=== PATIENT | female | born 1945 | race Caucasian/White ===

== ENCOUNTER 2017-08-09 17:13 | Emergency (ER) | payer MEDICARE, MEDICAID ==
[2017-08-09] MEDS ORDERED: GI Cocktail Oral Solution 30 ML PO ONE (17:25)
[2017-08-09] MEDS ORDERED: Nitroglycerin 0.4 MG Tab.SL SL ONE (17:25)
[2017-08-09] MEDS ORDERED: Aspirin 81 MG Tab.EC PO ONE (17:27)
--- NOTE | 2017-08-09 17:41 | EDM.PDOC ---
ED HPI GENERAL MEDICAL PROBLEM - General Chief Complaint: Chest Pain Stated Complaint: middle chest pain Time Seen by Provider: 08/09/17 17:24 Source of Information: Reports: Patient History Limitations: Reports: No Limitations - History of Present Illness INITIAL COMMENTS - FREE TEXT/NARRATIVE: Patient presents with chest pain that she has been having for the last 5-6 days. She describes it as a short stabbing pain that feels like someone is poking her in the middle of her chest. It lasts a few seconds, then is gone. She denies chest pressure, no SOB, no sweating, nausea, vomiting. Having regular bowel and urinary habits with no blood seen in either. No pain or pressure down her arms or back. No pain to her abdomen. She denies recent travel, or contact with someone with illness or recent travel. Family history includes a sister who from CVA in her 60's, brother who had heart valve surgery in his 50's, mother had a stroke in her 60's, as well as a pacemaker insertion. Father in his 40's from suicide. Personal medical history includes COPD, HTN. She denies asthma, diabetes, cancer, states cholesterol is normal, no thyroid issues. Surgical history includes gallbladder and appendix removal as well as a total hysterectomy. She denies alcohol use, smokes 1 PPD for the last years, former smoker of marijuana. Onset Date: 08/03/17 Duration: Intermittent Location: Reports: Chest Quality: Reports: Sharp, Throbbing Severity: Mild Improves with: Reports: None Worsens with: Reports: None Associated Symptoms: Reports: No Other Symptoms - Related Data Allergies Allergy/AdvReac Type Severity Reaction Status Date / Time acetaminophen [From Tylenol] Allergy Vomiting Verified 08/09/17 17:51 codeine Allergy Hives Verified 08/09/17 17:51 feathers Allergy Itching Verified 08/09/17 17:51 hydrocodone Allergy Cannot Verified 08/09/17 17:51 Remember Sulfa (Sulfonamide Allergy Hives Verified 08/09/17 17:51 Antibiotics) bee stings Allergy Cannot Uncoded 09/29/16 23:26 Remember IVP dye Allergy Cannot Uncoded 09/29/16 23:26 Remember Home Meds: Home Meds Albuterol Sulfate [Albuterol Sulfate HFA] 2 inh Q6H PRN 08/12/15 [History] Aspirin 81 mg PO DAILY 08/12/15 [History] FLUoxetine [PROzac] 20 mg PO DAILY 08/12/15 [History] Gluc HCl/Csa/Omkar Hy/Hyalur Ac [Glucosamine Chondroitin] 1 tab DAILY 08/12/15 [ History] Oxybutynin [Oxybutynin ER] 10 mg PO DAILY 08/12/15 [History] Triamterene/Hydrochlorothiazid [Triamterene-HCTZ 37.5-25 MG] 1 tab ASDIRECTED PRN 08/12/15 [History] oxyCODONE HCl [Oxycodone HCl] 30 mg PO TID 08/12/15 [History] Fluocinonide [Lidex 0.05% Crm] 15 gm .XX BID 08/09/17 [History] busPIRone [Buspar] 15 mg PO BID 08/09/17 [History] Past Medical History Cardiovascular History: Reports: Hypertension Musculoskeletal History: Reports: Arthritis, Back Pain, Chronic Other Musculoskeletal History: degenerative disc disease. dysfunctional pelvis - Past Surgical History Other Musculoskeletal Surgeries/Procedures:: bunionectomy Social & Family History - Tobacco Use Smoking Status *Q: Current Every Day Smoker Years of Tobacco use: 50 Packs/Tins Daily: 1 - Recreational Drug Use Recreational Drug Use: No ED ROS GENERAL - Review of Systems Review Of Systems: See Below Constitutional: Reports: No Symptoms HEENT: Reports: No Symptoms Respiratory: Reports: No Symptoms Cardiovascular: Reports: Chest Pain Endocrine: Reports: No Symptoms GI/Abdominal: Reports: No Symptoms : Reports: No Symptoms Musculoskeletal: Reports: No Symptoms Skin: Reports: No Symptoms Neurological: Reports: No Symptoms Psychiatric: Reports: No Symptoms Hematologic/Lymphatic: Reports: No Symptoms Immunologic: Reports: No Symptoms ED EXAM, GENERAL - Physical Exam Exam: See Below Exam Limited By: No Limitations General Appearance: Alert, WD/WN, No Apparent Distress Eye Exam: Bilateral Eye: EOMI, PERRL Ears: Normal TMs Nose: Normal Inspection Throat/Mouth: Normal Inspection, Normal Oropharynx Head: Atraumatic, Normocephalic Neck: Normal Inspection, Supple, Non-Tender, Full Range of Motion Respiratory/Chest: No Respiratory Distress, Lungs Clear, Normal Breath Sounds, No Accessory Muscle Use, Chest Non-Tender Cardiovascular: Normal Peripheral Pulses, Regular Rate, Rhythm (sinus bradycardia rate of 58 on ECG), Systolic Murmur Peripheral Pulses: 2+: Posterior Tibial (L), Posterior Tibial (R), Dorsalis Pedis (L), Dorsalis Pedis (R) GI/Abdominal: Normal Bowel Sounds, Soft, Non-Tender, No Organomegaly, No Distention, No Abnormal Bruit, No Mass Back Exam: Normal Inspection, Full Range of Motion Extremities: Normal Inspection, Normal Range of Motion, Non-Tender, No Pedal Edema, Normal Capillary Refill Neurological: Alert, Oriented, CN II-XII Intact, Normal Cognition, Normal Gait, Normal Reflexes, No Motor/Sensory Deficits Psychiatric: Normal Affect, Normal Mood Skin Exam: Warm, Dry, Intact, Normal Color, No Rash Lymphatic: No Adenopathy EKG INTERPRETATION EKG Date: 08/09/17 Time: 17:23 Rhythm: Other (sinus bradycardia at 58 bpm) Rate (Beats/Min): 58 [place]: LAD-Left [place] Deviation (borderline axis -20) P-Wave: Present QRS: Normal ST-T: Normal QT: Normal Comparison: Change From Previous EKG Course - Re-Assessments/Exams Free Text/Narrative Re-Assessment/Exam: 08/09/17 18:38 labwork, ecg, x-ray reviewed. No indications of ACS. Discharge with suggested follow up as needed. Departure - Departure Time of Disposition: 18:33 Disposition: Home, Self-Care 01 Condition: Good Clinical Impression: Costochondral chest pain Instructions: Nonspecific Chest Pain, [id number], Costochondritis, Easy-to- Read Forms: ED Department Discharge Additional Instructions: Please follow up with your primary provider as needed. All of your labwork, x-ray and ECG did not indicate that this is an acute myocardial infarction(heart attack). Because of the short intermittent nature of the pain, this is likely muscular in nature. There could also be some irritation in the soft tissue of the ribs. If you develop any worsening chest pain, shortness of breath, sweating, or nausea and vomiting, please return to the emergency department. You can call us at any time if you have any additional questions or concerns. - Problem List & Annotations (1) Costochondral chest pain SNOMED Code(s): 663942670 Code(s): R07.1 - CHEST PAIN ON BREATHING Status: Acute Priority: Low Current Visit: Yes - Problem List Review Problem List Initiated/Reviewed/Updated: Yes - Assessment/Plan Assessment:: chest pain costochondritis Plan: Please follow up with your primary provider as needed. All of your labwork, x-ray and ECG did not indicate that this is an acute myocardial infarction(heart attack). Because of the short intermittent nature of the pain, this is likely muscular in nature. There could also be some irritation in the soft tissue of the ribs. If you develop any worsening chest pain, shortness of breath, sweating, or nausea and vomiting, please return to the emergency department. You can call us at any time if you have any additional questions or concerns.
[2017-08-09 18:23] LABS: CHLORIDE,CL 103 mmol/L (98-107); SODIUM,NA 140 mmol/L (136-145)
[2017-08-09 18:47] VITALS: BP 112/74
== END 2017-08-09 18:42 | disposition home or self-care (01) ==
LOC: VM.ED 17:13
DX: R07.1 Chest pain on breathing (principal); F17.210 Nicotine dependence, cigarettes, uncomplicated; M19.90 Unspecified osteoarthritis, unspecified site; I10 Essential (primary) hypertension; Z88.8 Allergy status to other drugs, medicaments and biological substances; Z88.5 Allergy status to narcotic agent; Z88.2 Allergy status to sulfonamides; Z91.030 Bee allergy status; Z91.041 Radiographic dye allergy status; Z88.6 Allergy status to analgesic agent; Z79.82 Long term (current) use of aspirin; Z79.899 Other long term (current) drug therapy
CPT/HCPCS: 36415; 71020; 80053; 82550; 83880; 84484; 85025; 85610; 86140; 99284; A9270; 93005

== ENCOUNTER 2023-05-04 18:43 | Emergency (ER) | payer MEDICARE, MEDICAID ==
[2023-05-04 20:41] VITALS: BP 132/79; PULSE 76
[2023-05-04] MEDS: Take Home: predniSONE 20 MG, 2 Tab Pack PO ONE (20:54)
== END 2023-05-04 19:50 | disposition home or self-care (01) ==
LOC: VM.ED 18:43
DX: M54.40 Lumbago with sciatica, unspecified side (principal); J44.9 Chronic obstructive pulmonary disease, unspecified; I10 Essential (primary) hypertension; Z88.5 Allergy status to narcotic agent; Z88.2 Allergy status to sulfonamides; Z88.8 Allergy status to other drugs, medicaments and biological substances; Z91.030 Bee allergy status; Z91.048 Other nonmedicinal substance allergy status; Z79.82 Long term (current) use of aspirin; Z79.899 Other long term (current) drug therapy
CPT/HCPCS: 99283; 99284; J7512

== ENCOUNTER 2023-08-27 17:33 | Emergency (ER) | payer MEDICARE, MEDICAID ==
[2023-08-27 17:56] VITALS: PULSE 87
[2023-08-27 18:12] LABS: BASOPHILS PERCENT AUTO 0.5 % (0.2-1.2); HEMATOCRIT 36.2 % (33.0-47.0); HEMOGLOBIN 12.2 g/dL (12.0-16.0); LYMPHOCYTES PERCENT AUTO 27.2 % (25.0-50.0); MEAN CORPUSCULAR HEMOGLOBIN 27.2 pg (26.0-32.0); MEAN CORPUSCULAR HGB CONC 33.7 g/dL (32.0-36.0); MEAN CORPUSCULAR VOLUME 80.8 fL (78.0-93.0); MONOCYTES ABSOLUTE AUTO 0.6 x10^3/uL (0.0-0.8); MONOCYTES PERCENT AUTO 15.6 % (2.0-11.0); NEUTROPHILS ABSOLUTE AUTO 2.1 x10^3/uL (1.8-7.7); NEUTROPHILS PERCENT AUTO 56.7 % (50.0-80.0); PLATELET COUNT,PLT 232 x10^3/uL (130-400); RED BLOOD CELL COUNT 4.48 x10^6/uL (4.00-5.50); WHITE BLOOD CELL COUNT,WBC 3.7 x10^3/uL (4.0-10.0)
[2023-08-27 18:32] LABS: A/G RATIO 0.82; ALANINE AMINOTRANSFERASE,ALT 83 U/L (14-59); ALBUMIN 3.1 g/dL (3.4-5.0); ALKALINE PHOSPHATASE 405 U/L (46-116); ASPARTATE AMNIOTRANSFERASE,AST 78 U/L (15-37); BILIRUBIN TOTAL 0.4 mg/dL (0.2-1.0); BLOOD UREA NITROGEN,BUN 20 mg/dL (7-18); C-REACTIVE PROTEIN 1.58 mg/dL (<=0.30); CALCIUM 8.7 mg/dL (8.5-10.1); CARBON DIOXIDE,CO2 27 mmol/L (21-32); CHLORIDE,CL 99 mmol/L (98-107); CREATININE 1.2 mg/dL (0.55-1.02); GLUCOSE RANDOM 94 mg/dL (70-99); LIPASE 26 U/L (19-71); POTASSIUM,K 4.2 mmol/L (3.5-5.1); PROTEIN TOTAL,TP 6.9 g/dL (6.4-8.2); SODIUM,NA 136 mmol/L (136-145)
[2023-08-27 18:40] LABS: ANION GAP 14.2 mmol/L (5-15); ESTIMATED GFR 47 mL/min (>=60)
[2023-08-27] MEDS ORDERED: Nirmatrelvir/Ritonavir 300 MG/100 MG Dose Pack PO STA (19:04)
[2023-08-27 19:05] LABS: CORONAVIRUS COVID-19 NAA POSITIVE (NEGATIVE); INFLUENZA A NAA NEGATIVE (NEGATIVE); INFLUENZA B NAA NEGATIVE (NEGATIVE)
[2023-08-27] MEDS ORDERED: Take Home: Ondansetron 4 MG Tab.DIS, 5 Tab Pack PO ONE (19:06)
[2023-08-27 20:11] VITALS: BP 122/82
== END 2023-08-27 19:30 | disposition home or self-care (01) ==
LOC: VM.ED 17:33
DX: U07.1 COVID-19 (principal); J44.9 Chronic obstructive pulmonary disease, unspecified; I10 Essential (primary) hypertension; Z88.6 Allergy status to analgesic agent; Z88.5 Allergy status to narcotic agent; Z91.048 Other nonmedicinal substance allergy status; Z88.2 Allergy status to sulfonamides; Z91.030 Bee allergy status; Z91.041 Radiographic dye allergy status; Z79.899 Other long term (current) drug therapy
CPT/HCPCS: 0240U; 36415; 71046; 80053; 83690; 85025; 86140; 99285; Q0162

== ENCOUNTER 2023-08-31 22:45 | Emergency (ER) | payer MEDICARE, MEDICAID ==
[2023-08-31] MEDS ORDERED: Sodium Chloride 0.9% 10 ML Syringe FLUSH PRN (22:53)
[2023-08-31 23:15] LABS: EOSINOPHILS ABSOLUTE AUTO 0.1 x10^3/uL (0.0-0.5); HEMATOCRIT 34.2 % (33.0-47.0); HEMOGLOBIN 11.2 g/dL (12.0-16.0); LYMPHOCYTES ABSOLUTE AUTO 1.3 x10^3/uL (1.0-4.8); MEAN CORPUSCULAR HEMOGLOBIN 27.3 pg (26.0-32.0); MEAN CORPUSCULAR HGB CONC 32.7 g/dL (32.0-36.0); MEAN CORPUSCULAR VOLUME 83.2 fL (78.0-93.0); MONOCYTES ABSOLUTE AUTO 0.3 x10^3/uL (0.0-0.8); MONOCYTES PERCENT AUTO 8.7 % (2.0-11.0); NEUTROPHILS ABSOLUTE AUTO 1.4 x10^3/uL (1.8-7.7); NEUTROPHILS PERCENT AUTO 45.3 % (50.0-80.0); PLATELET COUNT,PLT 215 x10^3/uL (130-400); RED BLOOD CELL COUNT 4.11 x10^6/uL (4.00-5.50)
[2023-08-31 23:32] LABS: A/G RATIO 0.83; ALANINE AMINOTRANSFERASE,ALT 55 U/L (14-59); ALBUMIN 2.9 g/dL (3.4-5.0); ALKALINE PHOSPHATASE 338 U/L (46-116); ASPARTATE AMNIOTRANSFERASE,AST 41 U/L (15-37); BILIRUBIN TOTAL 0.3 mg/dL (0.2-1.0); BLOOD UREA NITROGEN,BUN 16 mg/dL (7-18); CALCIUM 8.3 mg/dL (8.5-10.1); CARBON DIOXIDE,CO2 31 mmol/L (21-32); CHLORIDE,CL 103 mmol/L (98-107); CREATININE 1.1 mg/dL (0.55-1.02); GLUCOSE RANDOM 101 mg/dL (70-99); POTASSIUM,K 5.5 mmol/L (3.5-5.1); PROTEIN TOTAL,TP 6.4 g/dL (6.4-8.2); SODIUM,NA 140 mmol/L (136-145)
[2023-08-31 23:36] LABS: ANION GAP 11.5 mmol/L (5-15); ESTIMATED GFR 52 mL/min (>=60)
[2023-09-01] MEDS ORDERED: methylPREDNISolone Sodium Succinate 125 MG/2 ML SDV IVPUSH ONE (00:35)
[2023-09-01] MEDS ORDERED: Albuterol/Ipratropium 3.0-0.5 MG/3 ML Neb Soln NEB ONE (00:35)
[2023-09-01 04:47] VITALS: BP 160/80; PULSE 62
== END 2023-09-01 00:49 | disposition home or self-care (01) ==
LOC: VM.ED 22:45
DX: U07.1 COVID-19 (principal); J44.1 Chronic obstructive pulmonary disease with (acute) exacerbation; R06.03 Acute respiratory distress; I10 Essential (primary) hypertension; Z86.16 Personal history of COVID-19; Z91.048 Other nonmedicinal substance allergy status; Z88.5 Allergy status to narcotic agent; Z88.2 Allergy status to sulfonamides; Z91.041 Radiographic dye allergy status; Z91.030 Bee allergy status; Z79.899 Other long term (current) drug therapy
CPT/HCPCS: 36415; 71045; 80053; 85025; 94640; 96374; 99285; J2930; J7620-GY

== ENCOUNTER 2023-09-23 10:55 | Inpatient (IN) | payer MEDICARE, MEDICAID ==
[2023-09-23] MEDS ORDERED: Cyclobenzaprine 10 MG Tab PO PRN (16:08)
[2023-09-23] MEDS ORDERED: busPIRone 15 MG Tab PO PRN (16:08)
[2023-09-23] MEDS ORDERED: Furosemide 40 MG Tab PO PRN (16:08)
[2023-09-23] MEDS: oxyCODONE 5 MG Tab PO SCH ×2 (19:57→23:21)
[2023-09-23] MEDS: Polyethylene Glycol 3350 Powder 17 GM Packet PO SCH (19:58)
[2023-09-23] MEDS: Enoxaparin 120 MG/0.8 ML Syringe SUBCUT SCH ×2 (19:58→23:21)
[2023-09-23] MEDS: Formoterol/Mometasone 200-5 MCG 13 GM Inhaler INH SCH ×2 (19:58→23:21)
[2023-09-23] MEDS: Diclofenac Sodium 1% Gel 100 GM Tube TOP SCH (20:02)
[2023-09-23] MEDS: Triamcinolone Acetonide 0.1% Crm 15 GM Tube TOP SCH (20:02)
[2023-09-24] MEDS: oxyCODONE 5 MG Tab PO PRN (06:34)
[2023-09-24 07:18] LABS: HEMATOCRIT 36.9 % (33.0-47.0); HEMOGLOBIN 11.9 g/dL (12.0-16.0); MEAN CORPUSCULAR HEMOGLOBIN 26.6 pg (26.0-32.0); MEAN CORPUSCULAR HGB CONC 32.2 g/dL (32.0-36.0); MEAN CORPUSCULAR VOLUME 82.6 fL (78.0-93.0); RED BLOOD CELL COUNT 4.47 x10^6/uL (4.00-5.50)
[2023-09-24 07:31] LABS: INR 1.4 (0.9-1.1); PROTHROMBIN TIME 14.4 SEC (9.5-12.2)
[2023-09-24] MEDS: FLUoxetine 20 MG Cap PO SCH (08:43)
[2023-09-24] MEDS: Polyethylene Glycol 3350 Powder 17 GM Packet PO SCH (08:43)
[2023-09-24] MEDS: Enoxaparin 120 MG/0.8 ML Syringe SUBCUT SCH (08:43)
[2023-09-24] MEDS: Rosuvastatin 20 MG Tab PO SCH (08:43)
[2023-09-24] MEDS: Formoterol/Mometasone 200-5 MCG 13 GM Inhaler INH SCH ×2 (08:44→20:18)
[2023-09-24] MEDS: oxyCODONE 5 MG Tab PO SCH ×4 (08:45→20:20)
[2023-09-24] MEDS: Triamcinolone Acetonide 0.1% Crm 15 GM Tube TOP SCH ×3 (08:46→20:19)
[2023-09-24] MEDS: Diclofenac Sodium 1% Gel 100 GM Tube TOP SCH ×2 (08:46→20:19)
[2023-09-24] MEDS ORDERED: Warfarin 5 MG Tab PO SCH (09:00)
[2023-09-24] MEDS ORDERED: Warfarin 2.5 MG, Warfarin 5 MG PO ONE ×2 (13:00)
[2023-09-24] MEDS: Enoxaparin 100 MG/1 ML Syringe SUBCUT SCH (20:20)
[2023-09-25] MEDS: oxyCODONE 5 MG Tab PO PRN ×2 (06:43→23:41)
[2023-09-25] MEDS: Polyethylene Glycol 3350 Powder 17 GM Packet PO SCH (08:13)
[2023-09-25] MEDS: Enoxaparin 100 MG/1 ML Syringe SUBCUT SCH ×2 (08:13→20:46)
[2023-09-25] MEDS: FLUoxetine 20 MG Cap PO SCH (08:13)
[2023-09-25] MEDS: Rosuvastatin 20 MG Tab PO SCH (08:13)
[2023-09-25] MEDS: Formoterol/Mometasone 200-5 MCG 13 GM Inhaler INH SCH ×2 (08:14→20:47)
[2023-09-25] MEDS: Triamcinolone Acetonide 0.1% Crm 15 GM Tube TOP SCH ×3 (08:16→20:47)
[2023-09-25] MEDS: Diclofenac Sodium 1% Gel 100 GM Tube TOP SCH ×2 (08:16→20:47)
[2023-09-25 08:38] LABS: INR 1.5 (0.9-1.1)
[2023-09-25] MEDS: oxyCODONE 5 MG Tab PO SCH ×2 (09:51→13:17)
[2023-09-25] MEDS ORDERED: Warfarin 2.5 MG, Warfarin 5 MG PO ONE ×2 (20:00)
[2023-09-26] MEDS: oxyCODONE 5 MG Tab PO SCH ×4 (02:52→23:50)
[2023-09-26] MEDS: Polyethylene Glycol 3350 Powder 17 GM Packet PO SCH (08:15)
[2023-09-26] MEDS: Enoxaparin 100 MG/1 ML Syringe SUBCUT SCH ×2 (08:15→20:37)
[2023-09-26] MEDS: Rosuvastatin 20 MG Tab PO SCH (08:16)
[2023-09-26] MEDS: FLUoxetine 20 MG Cap PO SCH (08:16)
[2023-09-26] MEDS: Formoterol/Mometasone 200-5 MCG 13 GM Inhaler INH SCH ×2 (08:17→20:35)
[2023-09-26] MEDS: Diclofenac Sodium 1% Gel 100 GM Tube TOP SCH ×2 (08:18→20:39)
[2023-09-26] MEDS: Triamcinolone Acetonide 0.1% Crm 15 GM Tube TOP SCH ×3 (08:18→20:38)
[2023-09-26 08:48] LABS: INR 1.4 (0.9-1.1); PROTHROMBIN TIME 14.4 SEC (9.5-12.2)
[2023-09-26] MEDS: oxyCODONE 5 MG Tab PO PRN (17:32)
[2023-09-26] MEDS ORDERED: Warfarin 2.5 MG, Warfarin 5 MG PO ONE ×2 (20:00)
[2023-09-27] MEDS: oxyCODONE 5 MG Tab PO SCH ×3 (06:20→12:32)
[2023-09-27 07:02] LABS: HEMATOCRIT 35.1 % (33.0-47.0); HEMOGLOBIN 11.8 g/dL (12.0-16.0); MEAN CORPUSCULAR HEMOGLOBIN 27.7 pg (26.0-32.0); MEAN CORPUSCULAR HGB CONC 33.6 g/dL (32.0-36.0); MEAN CORPUSCULAR VOLUME 82.4 fL (78.0-93.0); RED BLOOD CELL COUNT 4.26 x10^6/uL (4.00-5.50)
[2023-09-27 07:20] LABS: INR 1.5 (0.9-1.1); PROTHROMBIN TIME 15.5 SEC (9.5-12.2)
[2023-09-27 07:49] LABS: A/G RATIO 0.75; ALBUMIN 2.7 g/dL (3.4-5.0); BILIRUBIN TOTAL 0.2 mg/dL (0.2-1.0); CALCIUM 8.5 mg/dL (8.5-10.1); EST CRCL DRUG DOSING (CG) 46.42 mL/min; POTASSIUM,K 4.1 mmol/L (3.5-5.1); PROTEIN TOTAL,TP 6.3 g/dL (6.4-8.2)
[2023-09-27 07:50] LABS: ANION GAP 9.1 mmol/L (5-15)
[2023-09-27] MEDS: Enoxaparin 100 MG/1 ML Syringe SUBCUT SCH ×2 (08:31→20:40)
[2023-09-27] MEDS: FLUoxetine 20 MG Cap PO SCH (08:32)
[2023-09-27] MEDS: Polyethylene Glycol 3350 Powder 17 GM Packet PO SCH (08:32)
[2023-09-27] MEDS: Rosuvastatin 20 MG Tab PO SCH (08:32)
[2023-09-27] MEDS: Formoterol/Mometasone 200-5 MCG 13 GM Inhaler INH SCH ×2 (08:32→20:41)
[2023-09-27] MEDS: Triamcinolone Acetonide 0.1% Crm 15 GM Tube TOP SCH ×3 (08:33→20:42)
[2023-09-27] MEDS: Diclofenac Sodium 1% Gel 100 GM Tube TOP SCH ×2 (08:33→20:42)
[2023-09-27] MEDS ORDERED: Warfarin 5 MG Tab PO ONE (13:00)
[2023-09-28] MEDS: oxyCODONE 5 MG Tab PO SCH ×3 (01:46→12:18)
[2023-09-28] MEDS: oxyCODONE 5 MG Tab PO PRN ×2 (03:14→18:05)
[2023-09-28 07:21] LABS: INR 1.8 (0.9-1.1); PROTHROMBIN TIME 18.9 SEC (9.5-12.2)
[2023-09-28] MEDS: Rosuvastatin 20 MG Tab PO SCH (09:16)
[2023-09-28] MEDS: FLUoxetine 20 MG Cap PO SCH (09:19)
[2023-09-28] MEDS: Polyethylene Glycol 3350 Powder 17 GM Packet PO SCH (09:19)
[2023-09-28] MEDS: Enoxaparin 100 MG/1 ML Syringe SUBCUT SCH ×2 (09:19→21:04)
[2023-09-28] MEDS: Formoterol/Mometasone 200-5 MCG 13 GM Inhaler INH SCH ×2 (09:26→21:05)
[2023-09-28] MEDS: Triamcinolone Acetonide 0.1% Crm 15 GM Tube TOP SCH ×3 (09:27→21:09)
[2023-09-28] MEDS: Diclofenac Sodium 1% Gel 100 GM Tube TOP SCH ×2 (09:28→21:09)
[2023-09-28] MEDS ORDERED: Warfarin 5 MG Tab PO ONE (13:00)
[2023-09-29] MEDS: oxyCODONE 5 MG Tab PO SCH ×3 (02:45→13:07)
[2023-09-29 07:29] LABS: INR 2.2 (0.9-1.1); PROTHROMBIN TIME 22.9 SEC (9.5-12.2)
[2023-09-29] MEDS: Rosuvastatin 20 MG Tab PO SCH (08:39)
[2023-09-29] MEDS: FLUoxetine 20 MG Cap PO SCH (08:40)
[2023-09-29] MEDS: Polyethylene Glycol 3350 Powder 17 GM Packet PO SCH (08:41)
[2023-09-29] MEDS: Diclofenac Sodium 1% Gel 100 GM Tube TOP SCH (08:41)
[2023-09-29] MEDS: Triamcinolone Acetonide 0.1% Crm 15 GM Tube TOP SCH ×2 (08:41→13:23)
[2023-09-29] MEDS: Formoterol/Mometasone 200-5 MCG 13 GM Inhaler INH SCH (08:43)
[2023-09-29 13:39] VITALS: BP 192/84; PULSE 68
== END 2023-09-29 13:20 | disposition home health service (06) | DRG 948 ==
LOC: VM.MS 13:16
PROVIDERS: ADMIT Family Medicine; ATTEND Family Medicine
DX: R53.1 Weakness (principal); I50.32 Chronic diastolic (congestive) heart failure; I48.0 Paroxysmal atrial fibrillation; I11.0 Hypertensive heart disease with heart failure; J44.9 Chronic obstructive pulmonary disease, unspecified; F51.01 Primary insomnia; F41.9 Anxiety disorder, unspecified; F32.A Depression, unspecified; G89.29 Other chronic pain; M54.50 Low back pain, unspecified; E78.00 Pure hypercholesterolemia, unspecified; E66.01 Morbid (severe) obesity due to excess calories; F15.90 Other stimulant use, unspecified, uncomplicated; F41.8 Other specified anxiety disorders; Z88.8 Allergy status to other drugs, medicaments and biological substances; Z88.2 Allergy status to sulfonamides; Z88.5 Allergy status to narcotic agent; Z90.89 Acquired absence of other organs; Z90.49 Acquired absence of other specified parts of digestive tract; Z68.37 Body mass index [BMI] 37.0-37.9, adult; Z79.01 Long term (current) use of anticoagulants; Z86.16 Personal history of COVID-19; Z90.710 Acquired absence of both cervix and uterus; Z98.41 Cataract extraction status, right eye; Z98.890 Other specified postprocedural states; Z87.891 Personal history of nicotine dependence
CPT/HCPCS: 36415; 80053; 83880; 85027; 85610; 95851-GO; 97110-GP; 97116-GP; 97162-GP; 97164-GP; 97165-GO; 97535-GO; A9270-GY; J1650

== ENCOUNTER 2025-08-31 10:38 | Emergency (ER) | payer OTHER, MEDICARE, MEDICAID ==
[2025-08-31] MEDS ORDERED: Sodium Chloride 0.9% 10 ML Syringe FLUSH PRN (10:57)
[2025-08-31 11:15] LABS: BASOPHILS ABSOLUTE AUTO 0.0 x10^3/uL (0.0-0.2); BASOPHILS PERCENT AUTO 0.3 % (0.2-1.2); EOSINOPHILS ABSOLUTE AUTO 0.1 x10^3/uL (0.0-0.5); EOSINOPHILS PERCENT AUTO 2.1 % (0.0-4.0); IMMATURE GRAN ABSOLUTE AUTO 0.01 x10^3/uL (0.00-0.07); IMMATURE GRAN PERCENT AUTO 0.20 % (0.00-0.43); LYMPHOCYTES ABSOLUTE AUTO 1.8 x10^3/uL (1.0-4.8); LYMPHOCYTES PERCENT AUTO 27.7 % (25.0-50.0); MONOCYTES ABSOLUTE AUTO 0.4 x10^3/uL (0.0-0.8); MONOCYTES PERCENT AUTO 7.0 % (2.0-11.0); NEUTROPHILS ABSOLUTE AUTO 4.0 x10^3/uL (1.8-7.7); NEUTROPHILS PERCENT AUTO 62.7 % (50.0-80.0); PLATELET COUNT,PLT 281 x10^3/uL (130-400); RED BLOOD CELL COUNT 4.82 x10^6/uL (4.00-5.50); WHITE BLOOD CELL COUNT,WBC 6.3 x10^3/uL (4.0-10.0)
[2025-08-31 11:27] LABS: INR 0.9 (0.9-1.1); PTT,PARTIAL THROMBOPLSTIN TIME 23.6 SEC (24.3-33.4)
[2025-08-31 11:37] LABS: A/G RATIO 0.87; ALANINE AMINOTRANSFERASE,ALT 35 U/L (14-59); ASPARTATE AMNIOTRANSFERASE,AST 25 U/L (15-37); BILIRUBIN TOTAL 0.4 mg/dL (0.2-1.0); BLOOD UREA NITROGEN,BUN 37 mg/dL (7-18); CARBON DIOXIDE,CO2 28 mmol/L (21-32); CHLORIDE,CL 100 mmol/L (98-107); CREATININE 1.2 mg/dL (0.55-1.02); GLUCOSE RANDOM 105 mg/dL (70-99); POTASSIUM,K 4.3 mmol/L (3.5-5.1); PROTEIN TOTAL,TP 7.3 g/dL (6.4-8.2); SODIUM,NA 136 mmol/L (136-145)
[2025-08-31 11:41] LABS: ESTIMATED GFR 47 mL/min (>=60)
[2025-08-31 12:46] VITALS: BP 170/82; PULSE 69
== END 2025-08-31 13:56 | disposition home or self-care (01) ==
LOC: VM.ED 10:38
DX: M54.50 Low back pain, unspecified (principal); G89.29 Other chronic pain; R07.9 Chest pain, unspecified; I11.0 Hypertensive heart disease with heart failure; I50.9 Heart failure, unspecified; J44.9 Chronic obstructive pulmonary disease, unspecified; Z86.16 Personal history of COVID-19; Z79.899 Other long term (current) drug therapy; Z79.84 Long term (current) use of oral hypoglycemic drugs; Z91.030 Bee allergy status; Z88.5 Allergy status to narcotic agent; Z91.048 Other nonmedicinal substance allergy status; Z91.041 Radiographic dye allergy status; Z88.2 Allergy status to sulfonamides; Z88.6 Allergy status to analgesic agent; V49.40XA Driver injured in collision with unspecified motor vehicles in traffic accident, initial encounter; Y92.410 Unspecified street and highway as the place of occurrence of the external cause
CPT/HCPCS: 36415; 70450; 71250; 72125; 74176; 80053; 82150; 83605; 83690; 83735; 84484; 85025; 85610; 85730; 93005; 99285; A9270; 93010; 99284